=== PATIENT | male | born 1940 | race Two or more races ===

== ENCOUNTER 2017-02-06 17:37 | Emergency (ER) | payer MEDICARE, BC ==
[~2017-02-06] VITALS: Ht 180.3 cm; Wt 83.9 kg
[2017-02-06] MEDS ORDERED: ONDANSETRON HCL/PF 4 MG/2 ML VIAL IVP ONE (18:00)
[2017-02-06] MEDS ORDERED: IV NS 0.9% 1,000 ML BAG IV ONE ×2 (18:00→20:00)
[2017-02-06] MEDS ORDERED: ONDANSETRON HCL/PF 4 MG/2 ML VIAL ONE (18:01)
[2017-02-06] MEDS ORDERED: IBUPROFEN 600 MG TABLET PO ONE ×2 (18:11→18:30)
[2017-02-06 18:12] LABS: BASOPHILS # (AUTO) 0.1 /CMM (0.0-0.2); BASOPHILS % (AUTO) 1.6 % (0.0-2.0); EOSINOPHILS # (AUTO) 0.1 /CMM (0.0-0.7); EOSINOPHILS % (AUTO) 0.7 % (0.0-6.0); HEMATOCRIT 41 % (39-51); HEMOGLOBIN 14.6 g/dL (13.5-17.5); LYMPHOCYTES # (AUTO) 0.8 /CMM (0.8-4.8); LYMPHOCYTES % (AUTO) 8.7 % (20.0-44.0); MEAN CORPUSCULAR HEMOGLOBIN 32 PG (26.0-33.0); MEAN CORPUSCULAR HGB CONC 36 g/dl (31.0-36.0); MEAN CORPUSCULAR VOLUME 90 fL (80-96); MONOCYTES % (AUTO) 10.7 % (2.0-12.0); NEUTROPHILS # (AUTO) 7.2 /CMM (1.8-8.9); NEUTROPHILS % (AUTO) 78.3 % (43.0-81.0); PLATELET COUNT (AUTO) 193 /CMM (150-450); RED BLOOD CELL COUNT(AUTO) 4.54 MIL/uL (4.5-6.0); WHITE BLOOD COUNT (AUTO) 9.2 K/uL (4.3-11.0)
[2017-02-06 18:26] LABS: CALCIUM, SERUM 8.8 mg/dL (8.5-10.1); CARBON DIOXIDE 24 mmol/L (21-32); CHLORIDE 103 mmol/L (98-107); CREATININE 1.2 mg/dL (0.6-1.3); GLUCOSE 150 mg/dL (74-106); POTASSIUM 3.8 mmol/L (3.5-5.1); SODIUM SERUM 135 mmol/L (136-145); UREA NITROGEN, BLOOD 17 mg/dL (7-18)
[2017-02-06 18:29] LABS: INR 1.03 (0.87-1.13); PROTHROMBIN TIME 10.7 SECS (9.5-12.7)
[2017-02-06 18:33] LABS: ALANINE AMINOTRANSFERASE 41 U/L (12-78); ALBUMIN 3.6 g/dL (3.4-5.0); ALKALINE PHOSPHATASE 75 U/L (46-116); ASPARTATE AMINOTRANSFERASE 37 U/L (15-37); BILIRUBIN,DIRECT 0.1 mg/dL (0.0-0.2); BILIRUBIN,TOTAL 0.5 mg/dL (0.2-1.0); TOTAL PROTEIN, SERUM 7.1 g/dL (6.4-8.2)
[2017-02-06 18:36] LABS: TROPONIN I < 0.017 ng/mL (0.00-0.056)
--- NOTE | 2017-02-06 19:00 | NUR ---
PT RECEIVED FROM HOME WITH FAMILY C/O SYNCOPE EPISODE X1 "BUT I WASNT OUT FOR VERY LONG" WITH EPISODE OF N/V X1. NO SOB NOTED. A/O X4 VSS NAD. WILL CONTINUE TO MONITOR FOR ANY CHANGES
--- NOTE | 2017-02-06 19:00 | NUR ---
RECEIVED REPORT FROM CHERYLE, WILL CONTINUE CARE
--- NOTE | 2017-02-06 19:26 | NUR ---
ER AT BEDSIDE SPEAKING TO PT
--- NOTE | 2017-02-06 20:35 | NUR ---
ER MD GASCA IN ROOM DISCUSSING D/C PAPERWORK/INSTRUCTIONS. PT SIGNED D/C PAPERWORK BUT AWAITING COMPLETE NS 1L ADMIN
[2017-02-06 21:21] VITALS: BP 118/69
== END 2017-02-06 21:21 | disposition home or self-care (01) ==
LOC: ER 17:40
DX: R55 Syncope and collapse (principal); J11.1 Influenza due to unidentified influenza virus with other respiratory manifestations
CPT/HCPCS: 36415; 71045; 80048; 80076; 84484; 85025; 85730; 87804; 93005; 96361; 96374; 99285; A4606; J2405; J7030; 87400; Z7610

== ENCOUNTER 2019-10-01 03:14 | Emergency (ER) | payer BC, MEDICARE ==
[~2019-10-01] VITALS: Ht 180.3 cm; Wt 90.7 kg
--- NOTE | 2019-10-01 03:31 | NUR ---
PT AAOX4. AMBULATORY WITH STEADY GAIT. BIBRA 88 FROM HOME. PER RA C/O SYNCOPAL EPISODE IN HIS RESTROOM. PT BELIEVES PASSED OUT, DENIES ANY TRAUME. 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 VSS. SKIN WARM AND INTACT. AWAITING MD FOR EVAL AND ORDERS.
--- NOTE | 2019-10-01 03:33 | NUR ---
SPOKE TO PT'S AIDAN REGARDING PLAN OF TAKING CARE OF . NUMBER FOR AIDAN IS [phone].
--- NOTE | 2019-10-01 03:37 | NUR ---
RADIOLOGY AT BEDSIDE FOR LABS
--- NOTE | 2019-10-01 03:37 | NUR ---
FINISHED METAL REPAIRER AT BEDSIDE FOR LABS.
--- NOTE | 2019-10-01 03:38 | NUR ---
BLOOD SUGAR 138, MD AWARE.
[2019-10-01 03:39] LABS: BASOPHILS # (AUTO) 0.1 /CMM (0.0-0.2); BASOPHILS % (AUTO) 0.7 % (0.0-2.0); EOSINOPHILS % (AUTO) 5.9 % (0.0-6.0); HEMATOCRIT 45 % (39-51); HEMOGLOBIN 15.3 g/dL (13.5-17.5); LYMPHOCYTES % (AUTO) 37.6 % (20.0-44.0); MEAN CORPUSCULAR HGB CONC 34 g/dl (31.0-36.0); MEAN CORPUSCULAR VOLUME 92 fL (80-96); MONOCYTES # (AUTO) 0.9 /CMM (0.1-1.30); MONOCYTES % (AUTO) 11.4 % (2.0-12.0); NEUTROPHILS # (AUTO) 3.6 /CMM (1.8-8.9); NEUTROPHILS % (AUTO) 44.4 % (43.0-81.0); PLATELET COUNT (AUTO) 207 /CMM (150-450); RED BLOOD CELL COUNT(AUTO) 4.82 MIL/uL (4.5-6.0); WHITE BLOOD COUNT (AUTO) 8.1 K/uL (4.3-11.0)
[2019-10-01 04:01] LABS: ALANINE AMINOTRANSFERASE 35 U/L (12-78); ALBUMIN 3.4 g/dL (3.4-5.0); ALKALINE PHOSPHATASE 70 U/L (46-116); ASPARTATE AMINOTRANSFERASE 25 U/L (15-37); BILIRUBIN,DIRECT 0.1 mg/dL (0.0-0.2); BILIRUBIN,TOTAL 0.5 mg/dL (0.2-1.0); CALCIUM, SERUM 8.8 mg/dL (8.5-10.1); CARBON DIOXIDE 23 mmol/L (21-32); CHLORIDE 108 mmol/L (98-107); CREATININE 1.3 mg/dL (0.6-1.3); GLUCOSE 166 mg/dL (74-106); POTASSIUM 3.6 mmol/L (3.5-5.1); SODIUM SERUM 141 mmol/L (136-145); TOTAL PROTEIN, SERUM 6.3 g/dL (6.4-8.2); UREA NITROGEN, BLOOD 21 mg/dL (7-18)
[2019-10-01] MEDS ORDERED: ONDANSETRON HCL/PF 4 MG/2 ML VIAL ONE (04:26)
--- NOTE | 2019-10-01 04:29 | NUR ---
PT VOMITTED, 4MG ZOFRAN IVP ORDERED.
[2019-10-01] MEDS ORDERED: ONDANSETRON HCL/PF 4 MG/2 ML VIAL IV ONE (04:30)
--- NOTE | 2019-10-01 05:32 | NUR ---
Patient is resting comfortably in bed. Easily aroused. VSS.
--- NOTE | 2019-10-01 05:37 | NUR ---
DR. SIN PAGED PER ER ORDER.
--- NOTE | 2019-10-01 05:51 | NUR ---
IV removed. Catheter intact and site benign. Pressure and 4x4 applied to site. No bleeding noted.
--- NOTE | 2019-10-01 05:53 | NUR ---
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
--- NOTE | 2019-10-01 05:54 | NUR ---
Patient discharged to home in stable condition. Written and verbal after care instructions given. Patient verbalizes understanding of instruction. Pt ambulatory with stedy gait, vss.
[2019-10-01 05:55] VITALS: BP 121/71
== END 2019-10-01 06:10 | disposition home or self-care (01) ==
LOC: ER 03:16
DX: R55 Syncope and collapse (principal)
CPT/HCPCS: 36415; 70450; 71045; 80048; 80076; 82962; 84484; 85025; 93005; 96374; 99285; J2405